=== PATIENT | male | born 1965 | race Caucasian/White ===

== ENCOUNTER → 2017-10-15 | Outpatient (CLI) | payer BC, OTHER ==
[~2017-10-15] VITALS: Ht 172.7 cm; Wt 105.3 kg
[~2017-10-15] MED LIST: FLUO20CA35 PO; OXYC-57 PO; PRLSR20 PO; SUMA100T16 PO
[2017-10-15 15:54] VITALS: BP 127/81; PULSE 99; Ht 172.7 cm; Wt 105.3 kg
== END | disposition home or self-care (01) ==
LOC: C.NEUR 15:13
PROVIDERS: ATTEND Physician Assistant
DX: G47.30 Sleep apnea, unspecified (principal)